=== PATIENT | male | born 1985 | race African-American/Black ===

== ENCOUNTER 2020-09-16 09:34 | Emergency (ER) | payer MEDICAID, OTHER ==
[2020-09-16 09:37] VITALS: BP 185/108
[2020-09-16] MEDS ORDERED: LORazepam 2 MG/ML VIAL IV STA (10:07)
--- NOTE | 2020-09-16 20:42 | ECGEPIP ---
[facility] - ED Test Date: 2020-09-16 Pat Name: KAITLYNN HE Department: Room: - Gender: Male [employer]: MACK : 1985 Requested By: Derrick Mora Order Number: [id number] Reading MD: Derrick Santiago Measurements Intervals [place] Rate: 84 P: 65 [place]: 197 QRS: 57 QRSD: 100 T: 30 QT: 367 QTc: 435 Interpretive Statements SINUS RHYTHM WITH MARKED SINUS ARRHYTHMIA INCOMPLETE RIGHT BUNDLE BRANCH BLOCK BASELINE ARTIFACT AFFECTS INTERPRETATION NO PRIORS FOR COMPARISON Electronically Signed on 09-16-2020 20:41:46 EST by Derrick Santiago
== END 2020-09-16 10:15 | disposition left against medical advice (07) ==
LOC: M ED 09:34
DX: Z53.9 Procedure and treatment not carried out, unspecified reason (principal); F19.10 Other psychoactive substance abuse, uncomplicated; I45.19 Other right bundle-branch block; Z88.0 Allergy status to penicillin; Z88.8 Allergy status to other drugs, medicaments and biological substances; Z91.030 Bee allergy status

== ENCOUNTER 2021-02-28 18:16 | Emergency (ER) | payer MEDICAID, OTHER ==
[~2021-02-28] VITALS: Ht 185.4 cm; Wt 132.7 kg
[2021-02-28 18:17] VITALS: BP 139/75
== END 2021-02-28 20:58 | disposition left against medical advice (07) ==
LOC: M ED 18:16
DX: Z53.21 Procedure and treatment not carried out due to patient leaving prior to being seen by health care provider (principal)

== ENCOUNTER 2021-02-28 22:23 | Emergency (ER) | payer OTHER ==
[~2021-02-28] VITALS: Ht 185.4 cm; Wt 109.1 kg
[2021-02-28] MEDS ORDERED: PROMETHAZINE INJ 25 MG/ML VIAL (J2550) IV ONE (22:55)
[2021-02-28 23:12] LABS: BASO % 0.5 % (0.0-1.0); EOS # 0.3 10^3/uL (0.0-0.5); EOS % 4.5 % (0.0-3.0); HEMATOCRIT 41.4 % (42.0-52.0); LYMPH # 1.6 10^3/uL (1.5-5.0); LYMPH % 21.6 % (24.0-44.0); MEAN CORPUSCULAR HEMOGLOBIN 29.5 pg (27.0-33.0); MEAN CORPUSCULAR HGB CONC 33.8 g/dl (32.0-36.5); MEAN CORPUSCULAR VOLUME 87.3 fl (80.0-96.0); MONO # 0.7 10^3/uL (0.0-0.8); NEUTROPHILS # 4.7 10^3/uL (1.5-8.5); NEUTROPHILS % 63.9 % (36.0-66.0); PLATELET COUNT, AUTOMATED 304 10^3/uL (150-450); RED BLOOD COUNT 4.74 10^6/uL (4.30-6.10); WHITE BLOOD COUNT 7.4 10^3/uL (4.0-10.0)
[2021-02-28 23:31] LABS: ERYTHROCYTE SEDIMENTATION RATE 17 mm/hr (0-15)
[2021-02-28 23:47] LABS: ALBUMIN 3.4 GM/DL (3.2-5.2); ALT/SGPT 45 U/L (12-78); BILIRUBIN,DIRECT 0.1 MG/DL (0.0-0.2); BILIRUBIN,TOTAL 0.4 MG/DL (0.2-1.0); BLOOD UREA NITROGEN 8 MG/DL (7-18); C REACTIVE PROTEIN QUANTITATIV 0.51 MG/DL (0.00-0.30); CALCIUM LEVEL 8.3 MG/DL (8.5-10.1); CARBON DIOXIDE LEVEL 26 MEQ/L (21-32); CHLORIDE LEVEL 108 MEQ/L (98-107); CK-MB VALUE MASS 2.3 NG/ML (<3.6); CPK CREATINE PHOSPHOKINASE 755 U/L (39-308); CREATININE FOR GFR 0.64 MG/DL (0.70-1.30); GLOMERULAR FILTRATION RATE > 60.0 (>60); GLUCOSE, FASTING 98 MG/DL (70-100); NT-PRO BNP 31 PG/ML (<125); POTASSIUM SERUM 4.2 MEQ/L (3.5-5.1); SODIUM LEVEL 139 MEQ/L (136-145); THYROID STIMULATING HORMONE 0.492 uIU/ML (0.358-3.740); TOTAL PROTEIN 7.1 GM/DL (6.4-8.2); TROPONIN I < 0.02 NG/ML (< 0.10)
--- NOTE | 2021-03-01 00:08 | REPVR ---
PROCEDURE INFORMATION: Exam: XR Chest Exam date and time: 02/28/2021 11:07 PM Age: 35 years old Clinical indication: Other: Chest pain TECHNIQUE: Imaging protocol: XR of the chest. Views: 1 view. COMPARISON: No relevant prior studies available. FINDINGS: Lungs: Unremarkable. No consolidation. Pleural spaces: Unremarkable. No pleural effusion. No pneumothorax. Heart/Mediastinum: Unremarkable. No cardiomegaly. Bones/joints: Unremarkable. IMPRESSION: No acute infiltrates. Electronically signed by: Arminda Villanueva On 03/01/2021 00:07:41 AM
[2021-03-01 00:15] VITALS: BP 139/90
--- NOTE | 2021-03-01 10:58 | ECGEPIP ---
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
== END 2021-03-01 00:33 | disposition left against medical advice (07) ==
LOC: M ED 22:23
DX: R07.9 Chest pain, unspecified (principal); Z53.9 Procedure and treatment not carried out, unspecified reason; F19.10 Other psychoactive substance abuse, uncomplicated; Z88.0 Allergy status to penicillin; Z88.8 Allergy status to other drugs, medicaments and biological substances; Z91.030 Bee allergy status

== ENCOUNTER 2021-03-17 22:58 | Emergency (ER) | payer OTHER ==
[~2021-03-17] VITALS: Ht 185.4 cm; Wt 128.9 kg
[2021-03-18 07:15] LABS: BASO % 0.4 % (0.0-1.0); EOS # 0.3 10^3/uL (0.0-0.5); EOS % 5.7 % (0.0-3.0); HEMATOCRIT 41.1 % (42.0-52.0); HEMOGLOBIN 13.9 g/dl (13.5-17.5); LYMPH # 1.8 10^3/uL (1.5-5.0); MEAN CORPUSCULAR HEMOGLOBIN 29.5 pg (27.0-33.0); MEAN CORPUSCULAR HGB CONC 33.8 g/dl (32.0-36.5); MEAN CORPUSCULAR VOLUME 87.3 fl (80.0-96.0); MONO # 0.6 10^3/uL (0.0-0.8); NEUTROPHILS # 2.5 10^3/uL (1.5-8.5); NEUTROPHILS % 47.7 % (36.0-66.0); PLATELET COUNT, AUTOMATED 310 10^3/uL (150-450); RED BLOOD COUNT 4.71 10^6/uL (4.30-6.10); WHITE BLOOD COUNT 5.3 10^3/uL (4.0-10.0)
[2021-03-18 07:42] LABS: ALBUMIN 3.5 GM/DL (3.2-5.2); ALT/SGPT 41 U/L (12-78); BILIRUBIN,DIRECT 0.1 MG/DL (0.0-0.2); BILIRUBIN,TOTAL 0.5 MG/DL (0.2-1.0); BLOOD UREA NITROGEN 7 MG/DL (7-18); CALCIUM LEVEL 8.9 MG/DL (8.5-10.1); CARBON DIOXIDE LEVEL 26 MEQ/L (21-32); CHLORIDE LEVEL 109 MEQ/L (98-107); CREATININE FOR GFR 0.65 MG/DL (0.70-1.30); GLOMERULAR FILTRATION RATE > 60.0 (>60); GLUCOSE, FASTING 91 MG/DL (70-100); LIPASE 221 U/L (73-393); POTASSIUM SERUM 3.8 MEQ/L (3.5-5.1); SODIUM LEVEL 142 MEQ/L (136-145)
[2021-03-18 07:45] LABS: RSV AMPLIFICATION NEGATIVE (NEGATIVE)
--- NOTE | 2021-03-18 09:16 | REPVR ---
PROCEDURE INFORMATION: Exam: XR Chest Exam date and time: 03/18/2021 6:41 AM Age: 35 years old Clinical indication: Cough and dyspnea; Additional info: Cough and shortness of breath TECHNIQUE: Imaging protocol: XR of the chest. Views: 2 views. COMPARISON: CR PORTABLE CHEST X-RAY 02/28/2021 11:00 PM FINDINGS: Lungs: Slightly low lung volumes bilaterally with no acute cardiopulmonary disease evident. Pleural spaces: Unremarkable. No pleural effusion. No pneumothorax. Heart/Mediastinum: Unremarkable. No cardiomegaly. Bones/joints: Moderate dextroscoliosis of the mid-thoracic spine is again noted, unchanged with the apex at approximately the T6/T7 level. Other findings: Comparison to the previous chest radiograph from 02/28/2021 shows no major interval change. IMPRESSION: 1. Comparison to the previous chest radiograph from 02/28/2021 shows no major interval change. 2. Slightly low lung volumes bilaterally with no acute cardiopulmonary disease evident. 3. Moderate dextroscoliosis of the mid-thoracic spine is again noted, unchanged with the apex at approximately the T6/T7 level. Electronically signed by: Tate Oliver On 03/18/2021 09:16:12 AM
[2021-03-18 09:47] LABS: CPK CREATINE PHOSPHOKINASE 564 U/L (39-308)
[2021-03-18 10:13] VITALS: BP 150/76
== END 2021-03-18 10:21 | disposition home or self-care (01) ==
LOC: M ED 22:58
DX: F15.10 Other stimulant abuse, uncomplicated (principal); R05 Cough; R53.83 Other fatigue; J02.9 Acute pharyngitis, unspecified; M41.84 Other forms of scoliosis, thoracic region; Z88.0 Allergy status to penicillin; Z91.030 Bee allergy status